=== PATIENT | female | born 1965 | race Caucasian/White ===

== ENCOUNTER 2017-01-20 12:21 | Inpatient (IN) | payer OTHER ==
[~2017-01-20] VITALS: Ht 157.5 cm; Wt 98.9 kg
[2017-01-20] MEDS ORDERED: PATIENT MAY USE OWN MEDS, ALL PO SCH (13:00)
[2017-01-20] MEDS ORDERED: ONDANSETRON 4 MG/2 ML (SDV) Z0FRAN IVP PRN (13:00)
[2017-01-20] MEDS ORDERED: DOCUSATE SODIUM 100 MG (COLACE) CAP PO PRN (13:00)
[2017-01-20] MEDS ORDERED: ENOXAPARIN 40 MG/0.4 ML (LOVENOX) SYR SC SCH (13:00)
[2017-01-20] MEDS ORDERED: CEPH500C PO (13:49)
[2017-01-20] MEDS ORDERED: SOFO1TAB PO (13:53)
[2017-01-20] MEDS ORDERED: IBUP-30 PO (13:53)
[2017-01-20] MEDS ORDERED: CLINDAMYCIN INJECTION 600 MG in NS (IVPB) 50 ML IV SCH (14:00)
[2017-01-20] MEDS: ACETAMINOPHEN 500 MG TAB (TYLENOL) PO PRN ×3 (14:13→16:09)
[2017-01-20] MEDS ORDERED: PIPERACILLIN SODIUM/TAZOBACTAM 4.5 GM in NS (IVPB) 100 ML IV SCH (14:30)
[2017-01-20] MEDS ORDERED: VANCOMYCIN INJECTION 0.1 MG in NS (IVPB) 250 ML IV SCH (14:30)
--- NOTE | 2017-01-20 14:35 | History & Physicial (CHS) ---
HPI History of Present Illness: 51 yo female directly admitted from clinic due to worsening ulcer with surrounding cellulitis. 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 She reports the biopsy was done about 3 weeks ago and she initially had 2 small "holes" on her villeda, which then began to grow and turned into one large ulcer. In the last 3 days, she has had increasing redness around the ulcer, foul smelling drainage along with bleeding and marked swelling in her leg down to her foot. She has had chills, nausea and a headache as well. When it first started getting worse, she was started on cephalexin, but it has continued to get worse in spite of that treatment which she started 3 days ago. She still has the vasculitic rash on both legs, was treated with prednisone a few weeks ago and finished that course a couple of weeks ago without complete resolution of her rash. Date seen by provider: Jan 20, 2017 Time Seen by Provider: 14:32 Attending Physician Cyn Jones MD PCP Bruce Galaviz MD Consult Date of Admission Jan 20, 2017 at 13:02 Home Medications Home Medications Reviewed patient Home Medication Reconciliation Form Allergies Coded Allergies: No Known Drug Allergies (Unverified , 01/20/17) QCD-Aqdaxh-Hlzsre Hx Patient Social History Alcohol Use: Rarely Uses Recreational Drug Use: No (history of IV meth use, last use 2009) Smoking Status: Current Everyday Smoker Recent Foreign Travel: No Contact w/other who traveled: No Past Medical History PMHx: Chronic hepatitis C Mixed cryoglobulinemia Leukocytoclastic vasculitis PSurgHx: C sections Appendectomy Family Medical History Significant Family History: Hypertension Review of Systems ([facility]C) Constitutional: chills, malaise EENTM: throat pain, No nose congestion Respiratory: cough, short of breath Cardiovascular: No chest pain Gastrointestinal: No abdominal pain, No constipation, diarrhea, nausea, No vomiting Genitourinary: no symptoms reported Musculoskeletal: no symptoms reported Skin: see HPI Psychiatric/Neurological: No Symptoms Reported Physical Exam-([facility]) Physical Exam General Appearance: WD/WN, no apparent distress Respiratory: lungs clear, normal breath sounds Cardiovascular: regular rate, rhythm, no murmur Extremities: normal capillary refill, swelling (left) Neurologic/Psychiatric: alert, normal mood/affect Skin: rash (petechia, erythematous patches on both legs, left lower leg with about 3 cm black ulcerated lesion with foul odor and surrounding erythema of up to 15 cm or more) Assessment/Plan Assessment/Plan Admission Dx Left leg ulcer with cellulitis Mixed cryoglobulinemia with leukocytoclastic vasculitis Chronic hepatitis C Plan Left leg ulcer with cellulitis- failed treatment with cephalexin, foul odor and necrotic appearing, will consult wound care for dressing recommendations, wound culture, start Vancomycin and zosyn -Check CBC, lactic acid and CMP to rule out sepsis/severe sepsis Mixed cryoglobulinemia with leukocytoclastic vasculitis- consider prednisone if not improving with antibiotics alone Chronic hepatitis C- plan for antiviral treatment starting soon DVT ppx- enoxaparin Diagnosis/Problems: Copy Copies To 1: BRUCE GALAVIZ MD, BETHANY N MD Jan 20, 2017 14:35
[2017-01-20] MEDS ORDERED: PIPERACILLIN/TAZOBACTAM 4.5 GM/NS 100 ML IV NR ×2 (15:00)
[2017-01-20 15:06] LABS: BASOPHILS % (AUTO) 0 % (0-10); EOSINOPHILS % (AUTO) 1 % (0-10); LYMPHOCYTES # (AUTO) 1.3 X 10^3 (1.0-4.0); LYMPHOCYTES % (AUTO) 26 % (12-44); MEAN CORPUSCULAR HEMOGLOBIN 30 PG (25-34); MEAN CORPUSCULAR HGB CONC 34 G/DL (32-36); MEAN CORPUSCULAR VOLUME 90 FL (80-99); MEAN PLATELET VOLUME 10.6 FL (7.4-10.4); MONOCYTES # (AUTO) 0.3 X 10^3 (0.0-1.0); MONOCYTES % (AUTO) 6 % (0-12); NEUTROPHILS # (AUTO) 3.4 X 10^3 (1.8-7.8); NEUTROPHILS % (AUTO) 67 % (42-75); PLATELET COUNT 83 10^3/uL (130-400); RED BLOOD COUNT 3.58 10^6/uL (4.35-5.85); RED CELL DISTRIBUTION WIDTH 13.6 % (10.0-14.5); WHITE BLOOD COUNT 5.1 10^3/uL (4.3-11.0)
[2017-01-20 15:25] LABS: ALANINE AMINOTRANSFERASE 58 U/L (0-55); ALBUMIN 3.7 GM/DL (3.2-4.5); ANION GAP 9 MMOL/L (5-14); ASPARTATE AMINO TRANSFERASE 83 U/L (5-34); BILIRUBIN,TOTAL 1.3 MG/DL (0.1-1.0); BLOOD UREA NITROGEN 12 MG/DL (7-18); BUN/CREATININE RATIO 17; CALCIUM 8.7 MG/DL (8.5-10.1); CARBON DIOXIDE 23 MMOL/L (21-32); CHLORIDE 108 MMOL/L (98-107); CREATININE SERUM 0.71 MG/DL (0.60-1.30); GFR ESTIMATED > 60; GLUCOSE 104 MG/DL (70-105); POTASSIUM 3.6 MMOL/L (3.6-5.0); SODIUM 140 MMOL/L (135-145); TOTAL PROTEIN 5.8 GM/DL (6.4-8.2)
--- NOTE | 2017-01-20 15:29 | Wound Care Progress Note ---
Subjective Subjective Subjective/Events-last exam 51 year old female with histologically proven leukocytoclastic vasculitis, not responding to out-patient treatment , now with extensive cellulitis. The patient continues to smoke and quit taking prednisone prescribed. Urged to quit smoking and keep her legs elevated, if she hopes to not have poor course and possibly limb loss. PMH: Hepatitis C, Mixed cryoglobulinemia, leucocytoclastic vasculitis. Review of Systems Date Seen by Provider: Jan 20, 2017 Time Seen by Provider: 15:29 General: Chills Pulmonary: No Dyspnea Cardiovascular: No: Chest Pain Objective Exam Last Set of Vital Signs Capillary Refill : General: Alert, Mild Distress Lungs: Normal Air Movement Skin: Other (Necrotic L anterior calf ulcer at site of previous diagnostic biopsy. Surrounding cellulitis.) Results Lab Laboratory Tests 01/20/17 14:44: White Blood Count 5.1, Red Blood Count 3.58L, Hemoglobin 10.9L, Hematocrit 32L, Mean Corpuscular Volume 90, Mean Corpuscular Hemoglobin 30, Mean Corpuscular Hemoglobin Concent 34, Red Cell Distribution Width 13.6, Platelet Count 83L, Mean Platelet Volume 10.6H, Neutrophils (%) (Auto) 67, Lymphocytes (%) (Auto) 26 , Monocytes (%) (Auto) 6, Eosinophils (%) (Auto) 1, Basophils (%) (Auto) 0, Neutrophils # (Auto) 3.4, Lymphocytes # (Auto) 1.3, Monocytes # (Auto) 0.3, Eosinophils # (Auto) 0.0, Basophils # (Auto) 0.0, Sodium Level 140, Potassium Level 3.6, Chloride Level 108H, Carbon Dioxide Level 23, Anion Gap 9, Blood Urea Nitrogen 12, Creatinine 0.71, Estimat Glomerular Filtration Rate > 60, BUN/ Creatinine Ratio 17, Glucose Level 104, Lactic Acid Level 0.76, Calcium Level 8.7, Total Bilirubin 1.3H, Aspartate Amino Transf (AST/SGOT) 83H, Alanine Aminotransferase (ALT/SGPT) 58H, Alkaline Phosphatase 52, Total Protein 5.8L, Albumin 3.7 Assessment/Plan Assessment/Plan Assessment/Plan 1. L calf ulcer, full thickness. 2. Leukocytoclastic vasculitis. 3. Cryoglobulinemic vasculitis. 4. Cellulitis, L calf Plan: Elevate, IV antibiotics, systemic steroids. BIJAN PUENTE MD Jan 20, 2017 15:29
[2017-01-20 16:00] VITALS: BP 103/68
[2017-01-20] MEDS ORDERED: VANCOMYCIN 2000 MG/NS 500 ML IVPB IV NR ×2 (16:00)
[2017-01-20] MEDS: predniSONE 20 MG TAB PO SCH (16:21)
[2017-01-20] MEDS: DAKIN'S 1/4 STRENGTH (0.125%) 473 ML BTL TOP SCH (20:10)
[2017-01-20 20:39] VITALS: BP 132/75
[2017-01-20] MEDS: PIPERACILLIN/TAZOBACTAM 4.5 GM/NS 100 ML IVPB IV SCH ×2 (23:23)
[2017-01-21 00:32] VITALS: BP 107/57
[2017-01-21 03:22] VITALS: BP 118/67
[2017-01-21] MEDS ORDERED: VANCOMYCIN 1 GM/NS 250 ML IVPB IV SCH ×2 (04:00)
[2017-01-21] MEDS: PIPERACILLIN/TAZOBACTAM 4.5 GM/NS 100 ML IVPB IV SCH ×6 (06:13→21:38)
[2017-01-21 08:00] VITALS: BP 110/57
[2017-01-21] MEDS: NICOTINE 21 MG (NICODERM) PATCH TD SCH (10:57)
--- NOTE | 2017-01-21 11:49 | Progress Note (SOAP) ---
Subjective Subjective/Events-last exam leg looks much better per patient pain is decreased redness is better no "stink" anymore Review of Systems Date Seen by Provider: Jan 21, 2017 Time Seen by Provider: 10:00 General: No Chills, No Night Sweats Objective Exam Last Set of Vital Signs Vital Signs Date Time Temp Pulse Resp B/P (MAP) Pulse Ox O2 Delivery O2 Flow Rate FiO2 01/21/17 08:00 98.0 67 20 110/57 97 Room Air Capillary Refill : I&O Intake and Output 01/22/17 00:00 Intake Total 1172 ml Balance 1172 ml Intake Oral 222 ml IV Total 950 ml # Voids 4 Daily Weight Change No General: Alert, Oriented X3, Cooperative, No Acute Distress Lungs: Clear to Auscultation, Normal Air Movement Heart: Regular Rate, Normal S1, Normal S2, No Murmurs, Gallops, Rubs Abdomen: Normal Bowel Sounds, Soft, No Tenderness, No Hepatosplenomegaly Extremities: No Clubbing, No Cyanosis, No Edema Skin: Other (lesion necrotic with dusky cap refill, no drainage or pus) Results/Procedures Lab Laboratory Tests 01/20/17 14:44: White Blood Count 5.1, Red Blood Count 3.58L, Hemoglobin 10.9L, Hematocrit 32L, Mean Corpuscular Volume 90, Mean Corpuscular Hemoglobin 30, Mean Corpuscular Hemoglobin Concent 34, Red Cell Distribution Width 13.6, Platelet Count 83L, Mean Platelet Volume 10.6H, Neutrophils (%) (Auto) 67, Lymphocytes (%) (Auto) 26 , Monocytes (%) (Auto) 6, Eosinophils (%) (Auto) 1, Basophils (%) (Auto) 0, Neutrophils # (Auto) 3.4, Lymphocytes # (Auto) 1.3, Monocytes # (Auto) 0.3, Eosinophils # (Auto) 0.0, Basophils # (Auto) 0.0, Sodium Level 140, Potassium Level 3.6, Chloride Level 108H, Carbon Dioxide Level 23, Anion Gap 9, Blood Urea Nitrogen 12, Creatinine 0.71, Estimat Glomerular Filtration Rate > 60, BUN/ Creatinine Ratio 17, Glucose Level 104, Lactic Acid Level 0.76, Calcium Level 8.7, Total Bilirubin 1.3H, Aspartate Amino Transf (AST/SGOT) 83H, Alanine Aminotransferase (ALT/SGPT) 58H, Alkaline Phosphatase 52, Total Protein 5.8L, Albumin 3.7 Microbiology 01/20/17 Gram Stain, Resulted Pending 01/20/17 Wound Culture - Preliminary, Resulted Gram Negative Mahesh Staphylococcus Aureus Assessment/Plan Assessment/Plan Admission Dx Left leg ulcer with cellulitis Mixed cryoglobulinemia with leukocytoclastic vasculitis Chronic hepatitis C Plan Left leg ulcer with cellulitis- failed treatment with cephalexin, foul odor and necrotic appearing, will consult wound care for dressing recommendations, wound culture, start Vancomycin and zosyn -Check CBC, lactic acid and CMP to rule out sepsis/severe sepsis 01/21 - no sepsis, much improved on current abx, continue with dressings as instructed by Dr Hoang; keep leg elevated Mixed cryoglobulinemia with leukocytoclastic vasculitis- consider prednisone if not improving with antibiotics alone 01/21 - agree with prednisone, will taper at discharge Chronic hepatitis C- plan for antiviral treatment starting soon 01/21 - hold until lesions much better healed DVT ppx- enoxaparin 01/21 - ambulate TID, dc enoxaparin d/t thrombocytopenia Diagnosis/Problems: Clinical Quality Measures DVT/VTE Risk/Contraindication: Risk Factor Score Per Nursin RFS Level Per Nursing on Admit: 4+=Very High BRUCE RAMSAY MD Jan 21, 2017 11:49 am
[2017-01-21 12:00] VITALS: BP 123/71
[2017-01-21] MEDS: DAKIN'S 1/4 STRENGTH (0.125%) 473 ML BTL TOP SCH ×2 (12:10→21:38)
[2017-01-21] MEDS ORDERED: TROUGH ORDER-PHARMACY XX NR (15:00)
[2017-01-21 15:19] LABS: ANION GAP 9 MMOL/L (5-14); BLOOD UREA NITROGEN 11 MG/DL (7-18); BUN/CREATININE RATIO 15; CALCIUM 8.4 MG/DL (8.5-10.1); CARBON DIOXIDE 23 MMOL/L (21-32); CHLORIDE 109 MMOL/L (98-107); CREATININE SERUM 0.72 MG/DL (0.60-1.30); GFR ESTIMATED > 60; GLUCOSE 93 MG/DL (70-105); POTASSIUM 3.2 MMOL/L (3.6-5.0); SODIUM 141 MMOL/L (135-145)
[2017-01-21 16:21] VITALS: BP 128/68
[2017-01-21] MEDS: VANCOMYCIN INJECTION 1,500 MG in NS IV 500 ML 500 ML IV SCH (16:56)
[2017-01-21] MEDS: predniSONE 20 MG TAB PO SCH (17:01)
[2017-01-21 20:59] VITALS: BP 109/60
[2017-01-22 00:15] VITALS: BP 106/55
[2017-01-22] MEDS: VANCOMYCIN INJECTION 1,500 MG in NS IV 500 ML 500 ML IV SCH ×2 (03:34→16:50)
[2017-01-22] MEDS: PIPERACILLIN/TAZOBACTAM 4.5 GM/NS 100 ML IVPB IV SCH ×6 (05:06→22:13)
[2017-01-22 05:26] LABS: BASOPHILS % (AUTO) 0 % (0-10); EOSINOPHILS % (AUTO) 0 % (0-10); LYMPHOCYTES # (AUTO) 0.5 X 10^3 (1.0-4.0); LYMPHOCYTES % (AUTO) 12 % (12-44); MEAN CORPUSCULAR HEMOGLOBIN 30 PG (25-34); MEAN CORPUSCULAR HGB CONC 33 G/DL (32-36); MEAN CORPUSCULAR VOLUME 91 FL (80-99); MEAN PLATELET VOLUME 10.5 FL (7.4-10.4); MONOCYTES # (AUTO) 0.2 X 10^3 (0.0-1.0); MONOCYTES % (AUTO) 4 % (0-12); NEUTROPHILS # (AUTO) 3.9 X 10^3 (1.8-7.8); NEUTROPHILS % (AUTO) 85 % (42-75); PLATELET COUNT 80 10^3/uL (130-400); RED BLOOD COUNT 3.28 10^6/uL (4.35-5.85); RED CELL DISTRIBUTION WIDTH 13.4 % (10.0-14.5); WHITE BLOOD COUNT 4.6 10^3/uL (4.3-11.0)
[2017-01-22 05:57] LABS: ALANINE AMINOTRANSFERASE 47 U/L (0-55); ALBUMIN 3.2 GM/DL (3.2-4.5); ANION GAP 9 MMOL/L (5-14); ASPARTATE AMINO TRANSFERASE 49 U/L (5-34); BILIRUBIN,TOTAL 0.5 MG/DL (0.1-1.0); BLOOD UREA NITROGEN 10 MG/DL (7-18); BUN/CREATININE RATIO 15; CALCIUM 7.9 MG/DL (8.5-10.1); CARBON DIOXIDE 19 MMOL/L (21-32); CHLORIDE 114 MMOL/L (98-107); CREATININE SERUM 0.66 MG/DL (0.60-1.30); GFR ESTIMATED > 60; GLUCOSE 159 MG/DL (70-105); POTASSIUM 3.9 MMOL/L (3.6-5.0); SODIUM 142 MMOL/L (135-145); TOTAL PROTEIN 5.4 GM/DL (6.4-8.2)
[2017-01-22 08:00] VITALS: BP 117/60
[2017-01-22] MEDS: NICOTINE 21 MG (NICODERM) PATCH TD SCH (09:16)
[2017-01-22] MEDS: DAKIN'S 1/4 STRENGTH (0.125%) 473 ML BTL TOP SCH ×2 (09:18→22:13)
--- NOTE | 2017-01-22 12:04 | Progress Note (SOAP) ---
Subjective Subjective/Events-last exam pt asking to go home able to walk on leg easily no fevers Review of Systems Date Seen by Provider: Jan 22, 2017 Time Seen by Provider: 10:20 General: No Chills Cardiovascular: No: Chest Pain Objective Exam Last Set of Vital Signs Vital Signs Date Time Temp Pulse Resp B/P (MAP) Pulse Ox O2 Delivery O2 Flow Rate FiO2 01/22/17 08:00 98.9 77 20 117/60 99 Room Air Capillary Refill : I&O Intake and Output 01/23/17 00:00 Intake Total 1715 ml Balance 1715 ml Intake Oral 1000 ml IV Total 715 ml # Voids 3 General: Alert, Oriented X3, Cooperative, No Acute Distress Lungs: Clear to Auscultation, Normal Air Movement Heart: Regular Rate, Normal S1, Normal S2, No Murmurs, Gallops, Rubs Abdomen: Normal Bowel Sounds, Soft, No Tenderness, No Hepatosplenomegaly Extremities: No Clubbing, No Cyanosis, No Edema Skin: Other (lesion healing with good cap refill surrounding today) Results/Procedures Lab Laboratory Tests 01/21/17 14:59: Sodium Level 141, Potassium Level 3.2L, Chloride Level 109H, Carbon Dioxide Level 23, Anion Gap 9, Blood Urea Nitrogen 11, Creatinine 0.72, Estimat Glomerular Filtration Rate > 60, BUN/Creatinine Ratio 15, Glucose Level 93, Calcium Level 8.4L, Vancomycin Level Trough 8.7L 01/22/17 04:55: Sodium Level 142, Potassium Level 3.9, Chloride Level 114H, Carbon Dioxide Level 19L, Anion Gap 9, Blood Urea Nitrogen 10, Creatinine 0.66, Estimat Glomerular Filtration Rate > 60, BUN/Creatinine Ratio 15, Glucose Level 159H, Calcium Level 7.9L, White Blood Count 4.6, Red Blood Count 3.28L, Hemoglobin 9.9L, Hematocrit 30L, Mean Corpuscular Volume 91, Mean Corpuscular Hemoglobin 30 , Mean Corpuscular Hemoglobin Concent 33, Red Cell Distribution Width 13.4, Platelet Count 80L, Mean Platelet Volume 10.5H, Neutrophils (%) (Auto) 85H, Lymphocytes (%) (Auto) 12, Monocytes (%) (Auto) 4, Eosinophils (%) (Auto) 0, Basophils (%) (Auto) 0, Neutrophils # (Auto) 3.9, Lymphocytes # (Auto) 0.5L, Monocytes # (Auto) 0.2, Eosinophils # (Auto) 0.0, Basophils # (Auto) 0.0, Total Bilirubin 0.5, Aspartate Amino Transf (AST/SGOT) 49H, Alanine Aminotransferase ( ALT/SGPT) 47, Alkaline Phosphatase 50, Total Protein 5.4L, Albumin 3.2 Microbiology 01/20/17 Blood Culture - Preliminary, Resulted No growth 01/20/17 Gram Stain - Final, Resulted 01/20/17 Wound Culture - Preliminary, Resulted Enterobacter Cloacae Staphylococcus Aureus Corynebacterium Species See Comments Assessment/Plan Assessment/Plan Admission Dx Left leg ulcer with cellulitis Mixed cryoglobulinemia with leukocytoclastic vasculitis Chronic hepatitis C Plan Left leg ulcer with cellulitis- failed treatment with cephalexin, foul odor and necrotic appearing, will consult wound care for dressing recommendations, wound culture, start Vancomycin and zosyn -Check CBC, lactic acid and CMP to rule out sepsis/severe sepsis 01/21 - no sepsis, much improved on current abx, continue with dressings as instructed by Dr Hoang; keep leg elevated 01/22 - continue zosyn, vanc; will s/w Dr Hoang to see about DC, prefer it be on Monday when the team is back Mixed cryoglobulinemia with leukocytoclastic vasculitis- consider prednisone if not improving with antibiotics alone 01/21 - agree with prednisone, will taper at discharge 01/22 - improving the vasculitis, will arrange appt with derm as outaptient Chronic hepatitis C- plan for antiviral treatment starting soon 01/21 - hold until lesions much better healed DVT ppx- enoxaparin 01/21 - ambulate TID, dc enoxaparin d/t thrombocytopenia Diagnosis/Problems: Clinical Quality Measures DVT/VTE Risk/Contraindication: Risk Factor Score Per Nursin RFS Level Per Nursing on Admit: 4+=Very High BRUCE RAMSAY MD Jan 22, 2017 12:04 pm
[2017-01-22] MEDS ORDERED: PRD20T PO (12:07)
[2017-01-22] MEDS ORDERED: TROUGH ORDER-PHARMACY XX NR (15:00)
[2017-01-22 16:34] VITALS: BP 115/62
[2017-01-22] MEDS: predniSONE 20 MG TAB PO SCH (16:50)
--- NOTE | 2017-01-22 20:29 | Wound Care Progress Note ---
Subjective Subjective Subjective/Events-last exam The aptient states she is having less pain. The wound margins, previously cyanotic, now show partial necrosis with viable base. Vasculitic changes are much improved. Stable for discharge if she will follow recommendations. Review of Systems Date Seen by Provider: Jan 22, 2017 Time Seen by Provider: 20:28 General: No Chills Pulmonary: No Dyspnea Cardiovascular: No: Chest Pain Objective Exam Last Set of Vital Signs Vital Signs Date Time Temp Pulse Resp B/P (MAP) Pulse Ox O2 Delivery O2 Flow Rate FiO2 01/22/17 16:34 99.0 81 20 115/62 100 Room Air Capillary Refill : I&O Intake and Output 01/23/17 00:00 Intake Total 2975 ml Balance 2975 ml Intake Oral 2260 ml IV Total 715 ml # Voids 8 # Bowel Movements 2 General: Alert, No Acute Distress Lungs: Normal Air Movement Skin: Other (L anterior calf --- 1/6 x 2/7 x x0.6 cm, 100% black necrotic eschar. periwound edema.) Results Lab Laboratory Tests 01/22/17 04:55: White Blood Count 4.6, Red Blood Count 3.28L, Hemoglobin 9.9L, Hematocrit 30L, Mean Corpuscular Volume 91, Mean Corpuscular Hemoglobin 30, Mean Corpuscular Hemoglobin Concent 33, Red Cell Distribution Width 13.4, Platelet Count 80L, Mean Platelet Volume 10.5H, Neutrophils (%) (Auto) 85H, Lymphocytes (%) (Auto) 12, Monocytes (%) (Auto) 4, Eosinophils (%) (Auto) 0, Basophils (%) (Auto) 0, Neutrophils # (Auto) 3.9, Lymphocytes # (Auto) 0.5L, Monocytes # (Auto) 0.2, Eosinophils # (Auto) 0.0, Basophils # (Auto) 0.0, Sodium Level 142, Potassium Level 3.9, Chloride Level 114H, Carbon Dioxide Level 19L, Anion Gap 9, Blood Urea Nitrogen 10, Creatinine 0.66, Estimat Glomerular Filtration Rate > 60, BUN/ Creatinine Ratio 15, Glucose Level 159H, Calcium Level 7.9L, Total Bilirubin 0.5 , Aspartate Amino Transf (AST/SGOT) 49H, Alanine Aminotransferase (ALT/SGPT) 47 , Alkaline Phosphatase 50, Total Protein 5.4L, Albumin 3.2 01/22/17 14:55: Vancomycin Level Trough 15.4 Microbiology 01/20/17 Blood Culture - Preliminary, Resulted No growth 01/20/17 Gram Stain - Final, Resulted 01/20/17 Wound Culture - Preliminary, Resulted Enterobacter Cloacae Staphylococcus Aureus Corynebacterium Species See Comments Assessment/Plan Assessment/Plan Assessment/Plan 1. Vasculitis, leukocytoclastic, bilateral legs. 2. Cellulitis, L calf, improved. 3. Ulcer L calf, full thickness. 4. Cryoglobulinemia, Hepatitis C infection. Plan: Continue IV antibiotics and dressings. Will follow as outpatient. BIJAN PUENTE MD Jan 22, 2017 20:29
[2017-01-23 00:39] VITALS: BP 112/67
[2017-01-23] MEDS: VANCOMYCIN INJECTION 1,500 MG in NS IV 500 ML 500 ML IV SCH ×2 (03:23→15:42)
[2017-01-23 04:47] LABS: BASOPHILS % (AUTO) 0 % (0-10); EOSINOPHILS % (AUTO) 0 % (0-10); LYMPHOCYTES # (AUTO) 0.6 X 10^3 (1.0-4.0); LYMPHOCYTES % (AUTO) 12 % (12-44); MEAN CORPUSCULAR HEMOGLOBIN 30 PG (25-34); MEAN CORPUSCULAR HGB CONC 33 G/DL (32-36); MEAN CORPUSCULAR VOLUME 92 FL (80-99); MONOCYTES # (AUTO) 0.3 X 10^3 (0.0-1.0); MONOCYTES % (AUTO) 6 % (0-12); NEUTROPHILS % (AUTO) 82 % (42-75); PLATELET COUNT 76 10^3/uL (130-400); RED BLOOD COUNT 3.07 10^6/uL (4.35-5.85); RED CELL DISTRIBUTION WIDTH 13.6 % (10.0-14.5); WHITE BLOOD COUNT 4.8 10^3/uL (4.3-11.0)
[2017-01-23] MEDS: PIPERACILLIN/TAZOBACTAM 4.5 GM/NS 100 ML IVPB IV SCH ×4 (04:52→12:26)
[2017-01-23 05:11] LABS: ALANINE AMINOTRANSFERASE 45 U/L (0-55); ALBUMIN 3.1 GM/DL (3.2-4.5); ANION GAP 10 MMOL/L (5-14); ASPARTATE AMINO TRANSFERASE 46 U/L (5-34); BILIRUBIN,TOTAL 0.5 MG/DL (0.1-1.0); BLOOD UREA NITROGEN 13 MG/DL (7-18); BUN/CREATININE RATIO 15; CALCIUM 7.8 MG/DL (8.5-10.1); CARBON DIOXIDE 18 MMOL/L (21-32); CHLORIDE 115 MMOL/L (98-107); CREATININE SERUM 0.89 MG/DL (0.60-1.30); GFR ESTIMATED > 60; GLUCOSE 129 MG/DL (70-105); POTASSIUM 3.8 MMOL/L (3.6-5.0); SODIUM 143 MMOL/L (135-145); TOTAL PROTEIN 5.2 GM/DL (6.4-8.2)
[2017-01-23 07:37] VITALS: BP 106/62
[2017-01-23] MEDS: NICOTINE 21 MG (NICODERM) PATCH TD SCH (10:27)
[2017-01-23] MEDS: DAKIN'S 1/4 STRENGTH (0.125%) 473 ML BTL TOP SCH (10:31)
[2017-01-23] MEDS: predniSONE 20 MG TAB PO SCH (15:42)
[2017-01-23] MEDS ORDERED: METR500T PO (16:20)
[2017-01-23] MEDS ORDERED: SULF1TAB35 PO (16:20)
--- NOTE | 2017-01-23 16:21 | Discharge Instructions ---
Discharge Inst-[facility] Discharge Medications New, Converted or Re-Newed RX: Transmitted to Pharmacy New Medications: Prednisone (Prednisone) 20 Mg Tab 20 MG PO DAILY for VASCULITIS, #10 TAB 0 Refills Continued Medications: Sofosbuvir/Velpatasvir (Epclusa 400 mg-100 mg Tablet) 1 Each Tablet 1 TAB PO UD, TAB PATIENT IS TO START A 12 WEEK THEARPY OF THIS ON 01-27-17 Discontinued Medications: Cephalexin (Cephalexin) 500 Mg Capsule 500 MG PO TID for 7 Days, CAP 7 DAY THERAPY FILLED 01-16-17 Ibuprofen (Advil) 200 Mg Tablet 400 MG PO Q6H PRN for PAIN-MILD, TAB Patient Instructions Goal/Follow Up Appt: -DR RAMSAY AT [facility]/K ON MONDAY AT 1:20. -PLEASE SCHEDULE AN APPOINTMENT WITH DR PUENTE FOR LATER THIS WEEK. HIS OFFICE IS OPEN TO CALL ON MONDAY. Patient Instructions: -WRAP THE LESION INSTRUCTED BY DR PUENTE'S TEAM. -FOLLOW UP WITH ALL APPOINTMENTS SCHEDULED. -DO NOT START YOUR HEP C MEDS UNTIL DR RAMSAY SAYS IT IS OK TO START - LESIONS MUST HEAL. -KEEP YOUR LEGS ELEVATED MUCH POSSIBLE. 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 Return to The Hospital For: INCREASED OOZING, PAIN, DRAINAGE, SWELLING. Activity & Diet Discharge Diet: Low Sodium Diet (2G SODIUM, 2L FLUID RESTRICTION) Activity as Tolerated: Yes (KEEP LEGS ELEVATED) Copy Copies To 1: BRUCE RAMSAY MD, JULIE A MD Jan 22, 2017 12:10 pm
--- NOTE | 2017-01-23 16:28 | Discharge Summary ---
Diagnosis/Chief Complaint Date of Admission Jan 20, 2017 at 1:02 pm Date of Discharge Jan 23, 2017 Admission Diagnosis Admission Diagnosis Left leg ulcer with cellulitis Mixed cryoglobulinemia with leukocytoclastic vasculitis Chronic hepatitis C Discharge Diagnosis Left leg ulcer with cellulitis- failed treatment with cephalexin, foul odor and necrotic appearing, will consult wound care for dressing recommendations, wound culture, start Vancomycin and zosyn -Check CBC, lactic acid and CMP to rule out sepsis/severe sepsis 01/21 - no sepsis, much improved on current abx, continue with dressings as instructed by Dr Hoang; keep leg elevated 01/22 - continue zosyn, vanc; will s/w Dr Hoang to see about DC, prefer it be on Monday when the team is back 01/23 - DC on bactrim, flagyl; bugs are Enterobacter and Bactrim; 10 day course, she will follow up with Dr Hoang this week and next and with me in 1-2 weeks Mixed cryoglobulinemia with leukocytoclastic vasculitis- consider prednisone if not improving with antibiotics alone 01/21 - agree with prednisone, will taper at discharge 01/22 - improving the vasculitis, will arrange appt with derm as outaptient 01/23 - DC on prednisone to improve vasculitis and hopefully the healing process Chronic hepatitis C- plan for antiviral treatment starting soon 01/21 - hold until lesions much better healed DVT ppx- enoxaparin 01/21 - ambulate TID, dc enoxaparin d/t thrombocytopenia Chief Complaint/HPI Chief Complaint/HPI 51 yo female directly admitted from clinic due to worsening ulcer with surrounding cellulitis. 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 She reports the biopsy was done about 3 weeks ago and she initially had 2 small "holes" on her villeda, which then began to grow and turned into one large ulcer. In the last 3 days, she has had increasing redness around the ulcer, foul smelling drainage along with bleeding and marked swelling in her leg down to her foot. She has had chills, nausea and a headache as well. When it first started getting worse, she was started on cephalexin, but it has continued to get worse in spite of that treatment which she started 3 days ago. She still has the vasculitic rash on both legs, was treated with prednisone a few weeks ago and finished that course a couple of weeks ago without complete resolution of her rash. Discharge Summary-Simple/Stand Consultations Dr Phoenix Hoang - wound care Discharge Physical Examination Allergies: Coded Allergies: No Known Drug Allergies (Unverified , 01/21/17) Vitals & I&Os Vital Sign - Last 12Hours Date Time Temp Pulse Resp B/P (MAP) Pulse Ox O2 Delivery O2 Flow Rate FiO2 01/23/17 09:00 Room Air 01/23/17 07:37 98.6 59 20 106/62 97 Intake and Output 01/24/17 00:00 Intake Total 1260 ml Balance 1260 ml General Appearance: Alert, Oriented X3, Cooperative, No Acute Distress Extremities: Other (leg much improved, lesions with pink bases; good cap refill surrounding the lesions) Psych/Mental Status: Mental Status NL, Mood NL Hospital Course See final discharge diagnosis. Labs Laboratory Tests Test 01/21/17 14:59 01/22/17 04:55 01/22/17 14:55 01/23/17 04:24 Range/Units Sodium Level 141 142 143 135-145 MMOL/L Potassium Level 3.2 L 3.9 3.8 3.6-5.0 MMOL/L Chloride Level 109 H 114 H 115 H 98-107 MMOL/L Carbon Dioxide Level 23 19 L 18 L 21-32 MMOL/L Anion Gap 9 9 10 5-14 MMOL/L Blood Urea Nitrogen 11 10 13 7-18 MG/DL Creatinine 0.72 0.66 0.89 0.60-1.30 MG/DL Estimat Glomerular Filtration Rate > 60 > 60 > 60 BUN/Creatinine Ratio 15 15 15 Glucose Level 93 159 H 129 H 70-105 MG/DL Calcium Level 8.4 L 7.9 L 7.8 L 8.5-10.1 MG/DL Vancomycin Level Trough 8.7 L 15.4 10.0-20.0 UG/ML White Blood Count 4.6 4.8 4.3-11.0 10^3/uL Red Blood Count 3.28 L 3.07 L 4.35-5.85 10^6/uL Hemoglobin 9.9 L 9.3 L 11.5-16.0 G/DL Hematocrit 30 L 28 L 35-52 % Mean Corpuscular Volume 91 92 80-99 FL Mean Corpuscular Hemoglobin 30 30 25-34 PG Mean Corpuscular Hemoglobin Concent 33 33 32-36 G/DL Red Cell Distribution Width 13.4 13.6 10.0-14.5 % Platelet Count 80 L 76 L 130-400 10^3/uL Mean Platelet Volume 10.5 H 10.0 7.4-10.4 FL Neutrophils (%) (Auto) 85 H 82 H 42-75 % Lymphocytes (%) (Auto) 12 12 12-44 % Monocytes (%) (Auto) 4 6 0-12 % Eosinophils (%) (Auto) 0 0 0-10 % Basophils (%) (Auto) 0 0 0-10 % Neutrophils # (Auto) 3.9 4.0 1.8-7.8 X 10^3 Lymphocytes # (Auto) 0.5 L 0.6 L 1.0-4.0 X 10^3 Monocytes # (Auto) 0.2 0.3 0.0-1.0 X 10^3 Eosinophils # (Auto) 0.0 0.0 0.0-0.3 10^3/uL Basophils # (Auto) 0.0 0.0 0.0-0.1 10^3/uL Total Bilirubin 0.5 0.5 0.1-1.0 MG/DL Aspartate Amino Transf (AST/SGOT) 49 H 46 H 5-34 U/L Alanine Aminotransferase (ALT/SGPT) 47 45 0-55 U/L Alkaline Phosphatase 50 47 40-136 U/L Total Protein 5.4 L 5.2 L 6.4-8.2 GM/DL Albumin 3.2 3.1 L 3.2-4.5 GM/DL Discharge Instructions to patient/family Please see electonic discharge instructions given to patient. Discharge Medications Reviewed and agree with Discharge Medication list on patient's Discharge Instruction sheet Clinical Quality Measures DVT/VTE Risk/Contraindication: Risk Factor Score Per Nursin RFS Level Per Nursing on Admit: 4+=Very High Copy Copies To 1: BRUCE RAMSAY MD, JULIE A MD Jan 23, 2017 4:28 pm
[2017-01-23 16:55] VITALS: BP 117/73
--- NOTE | 2017-01-25 09:43 | Physician Query Clarification ---
PQ-Link Infection to Dev/Proc Admission/Discharge Admission Date: Jan 20, 2017 at 13:15 Discharge Date: Jan 23, 2017 at 16:22 The medical record reflects the following clinical scenario: History/Risk Factors: biopsy 3 wks ago 2 holes on villeda which grew to 1 large ulcer, Leukocytoclastic vasculitis, smoker Clinical Findings: cellulitis, foul smelling drainage, bleeding, swelling in her leg down to her foot, chills, nausea headache Treatment: IV Vancomycin, Zosyn Question: Can you specify if the ulcer/cellulitis is due to/associated with the biopsy done 3 weeks prior? Please document a response below. PHYSICIAN RESPONSE Specify if infection: Yes,due to/associated with procdure Explanation of clincal finding pt went back to work with leg wrapped, has a manual labor job, caused maceration and infection In responding to this query, please exercise your independent professional judgment. The purpose of this communication is to more accurately reflect the complexity of your patients condition. The fact that a question is asked does not imply that any particular answer is desired or expected. Thank you for your timely response to this clarification. Requestors name: Kell THIS PHYSICIAN QUERY FORM IS A PERMANENT PART OF THE MEDICAL RECORD KELL PORTER Jan 25, 2017 09:43 BRUCE RAMSAY MD Feb 06, 2017 11:09
== END 2017-01-23 16:22 | disposition home or self-care (01) | DRG 863 ==
LOC: UNDOADMIN 13:02 → 4TH 13:02 → UNDODISIN 01-23 19:11
PROVIDERS: ADMIT Family Medicine; ATTEND Family Medicine
DX: T81.4XXA Infection following a procedure, initial encounter (principal); L03.116 Cellulitis of left lower limb; L97.829 Non-pressure chronic ulcer of other part of left lower leg with unspecified severity; B18.2 Chronic viral hepatitis C; L95.8 Other vasculitis limited to the skin; D89.1 Cryoglobulinemia; F17.200 Nicotine dependence, unspecified, uncomplicated; B96.89 Other specified bacterial agents as the cause of diseases classified elsewhere
CPT/HCPCS: 36415; 80048; 80053; 80202; 83605; 85025; 87040; 87070; 87077; 87186; 87205; 99211; G0378

== ENCOUNTER → 2017-01-30 | Outpatient (CLI) | payer OTHER ==
[~2017-01-30] MED LIST: CEPH500C PO; IBUP-30 PO; METR500T PO; PRD20T PO; SOFO1TAB PO; SULF1TAB35 PO
== END ==
LOC: WOUNDCARE 13:03
PROVIDERS: ATTEND Surgery
DX: L97.222 Non-pressure chronic ulcer of left calf with fat layer exposed (principal); L95.9 Vasculitis limited to the skin, unspecified; D89.1 Cryoglobulinemia; B18.2 Chronic viral hepatitis C; T65.222A Toxic effect of tobacco cigarettes, intentional self-harm, initial encounter
CPT/HCPCS: 11042; 87070; 87075; 87077; 87186; 87205

== ENCOUNTER → 2017-02-06 | Outpatient (CLI) | payer OTHER | LOC: WOUNDCARE 15:28 | PROVIDERS: ATTEND Surgery | DX: L97.222 Non-pressure chronic ulcer of left calf with fat layer exposed (principal); L95.9 Vasculitis limited to the skin, unspecified; E89.1 Postprocedural hypoinsulinemia; B18.2 Chronic viral hepatitis C; T65.222A Toxic effect of tobacco cigarettes, intentional self-harm, initial encounter | CPT/HCPCS: 11042 ==

== ENCOUNTER → 2017-02-13 | Outpatient (CLI) | payer OTHER | LOC: WOUNDCARE 14:47 | PROVIDERS: ATTEND Surgery | DX: L97.222 Non-pressure chronic ulcer of left calf with fat layer exposed (principal); L95.9 Vasculitis limited to the skin, unspecified; D89.1 Cryoglobulinemia; B18.2 Chronic viral hepatitis C; T65.222A Toxic effect of tobacco cigarettes, intentional self-harm, initial encounter | CPT/HCPCS: 11042 ==

== ENCOUNTER → 2017-02-20 | Outpatient (CLI) | payer OTHER | LOC: WOUNDCARE 14:40 | PROVIDERS: ATTEND Surgery | DX: L97.222 Non-pressure chronic ulcer of left calf with fat layer exposed (principal); L95.9 Vasculitis limited to the skin, unspecified; D89.1 Cryoglobulinemia; B18.2 Chronic viral hepatitis C | CPT/HCPCS: 11042; 87070; 87075; 87205 ==

== ENCOUNTER → 2017-02-27 | Outpatient (CLI) | payer OTHER | LOC: WOUNDCARE 14:22 | PROVIDERS: ATTEND Surgery | DX: L97.222 Non-pressure chronic ulcer of left calf with fat layer exposed (principal); L95.9 Vasculitis limited to the skin, unspecified; D89.1 Cryoglobulinemia; B18.2 Chronic viral hepatitis C | CPT/HCPCS: 11042 ==

== ENCOUNTER → 2017-03-06 | Outpatient (CLI) | payer OTHER | LOC: WOUNDCARE 14:32 | PROVIDERS: ATTEND Surgery | DX: L97.222 Non-pressure chronic ulcer of left calf with fat layer exposed (principal); L95.9 Vasculitis limited to the skin, unspecified; D89.1 Cryoglobulinemia; B18.2 Chronic viral hepatitis C | CPT/HCPCS: 11042 ==

== ENCOUNTER → 2017-03-13 | Outpatient (CLI) | payer SELFPAY | LOC: WOUNDCARE 14:33 | PROVIDERS: ATTEND Surgery | DX: L97.222 Non-pressure chronic ulcer of left calf with fat layer exposed (principal); L95.9 Vasculitis limited to the skin, unspecified; D89.1 Cryoglobulinemia; B18.2 Chronic viral hepatitis C | CPT/HCPCS: 11042 ==

== ENCOUNTER → 2017-04-03 | Outpatient (CLI) | payer OTHER | LOC: WOUNDCARE 14:41 | PROVIDERS: ATTEND Surgery | DX: L97.222 Non-pressure chronic ulcer of left calf with fat layer exposed (principal); L95.9 Vasculitis limited to the skin, unspecified; D89.1 Cryoglobulinemia; B18.2 Chronic viral hepatitis C | CPT/HCPCS: 99212 ==

== ENCOUNTER → 2017-07-11 | Outpatient (CLI) | payer SELFPAY ==
--- NOTE | 2017-07-11 09:05 | Diagnostic Imaging Report ---
DATE: 07/11/2017 8:44 AM REASON FOR EXAM: Chronic viral hepatitis. COMPARISON: None. TECHNIQUE: Routine liver/gallbladder ultrasound. FINDINGS: The liver is mildly prominent in size, measuring 19.1 cm in length. The liver echogenicity is somewhat coarse and heterogeneous, although no significant nodularity is appreciated along the contour. No focal lesions are seen. No intrahepatic biliary dilatation is present. The common bile duct is not dilated and measures 5 mm. There is no evidence of cholelithiasis or gallbladder wall thickening or pericholecystic fluid. Sonographic Russell's sign is negative. The visualized portions of the head and proximal body of the pancreas are within normal limits. The distal body and tail of the pancreas are not well visualized due to overlying bowel gas. The visualized portions of the IVC and aorta are normal. The right kidney measures approximately 10.7 cm in length and has a normal appearance. IMPRESSION: 1. Mildly heterogeneous liver with no focal lesion seen. No significant contour nodularity. 2. Normal appearing gallbladder. Dictated by: Dictated on workstation # [id number]
== END ==
LOC: RAD 08:01
PROVIDERS: ATTEND Nurse Practitioner Family
DX: B18.2 Chronic viral hepatitis C (principal)
CPT/HCPCS: 76705